=== PATIENT | female | born 1985 | race Caucasian/White ===

== ENCOUNTER 2017-11-10 07:59 | Emergency (ER) | payer OTHER ==
[~2017-11-10] VITALS: Ht 165.1 cm; Wt 52.6 kg
[2017-11-10] MEDS ORDERED: PLAQUENIL200 MG PO (08:21)
[2017-11-10] MEDS ORDERED: VITAMIN B-12500 MCG PO (08:21)
[2017-11-10] MEDS ORDERED: VITAMIN D2000 UNIT PO (08:21)
[2017-11-10] MEDS ORDERED: PROAIR HFA8.5 GM INH (08:22)
[2017-11-10] MEDS ORDERED: TRAMADOL 50 MG50 MG PO (08:22)
[2017-11-10] MEDS ORDERED: ZANAFLEX2 MG PO (08:23)
[2017-11-10] MEDS ORDERED: JUNEL FE 1-201 EACH PO (08:23)
[2017-11-10 09:05] LABS: INFLUENZA A ANTIGEN None Detected (None Detect); INFLUENZA B ANTIGEN None Detected (None Detect)
[2017-11-10] MEDS ORDERED: ZOFRAN ODT4 MG DISSOLVE (09:08)
[2017-11-10 09:25] VITALS: BP 118/82
== END 2017-11-10 09:26 | disposition home or self-care (01) ==
LOC: M.ERS 07:59
PROVIDERS: Family Medicine
DX: B34.9 Viral infection, unspecified (principal); F17.210 Nicotine dependence, cigarettes, uncomplicated; K21.9 Gastro-esophageal reflux disease without esophagitis; J45.909 Unspecified asthma, uncomplicated; Z90.710 Acquired absence of both cervix and uterus

== ENCOUNTER 2019-01-07 15:35 | Emergency (ER) | payer OTHER ==
[~2019-01-07] VITALS: Ht 165.1 cm; Wt 57.6 kg
[~2019-01-07 15:35] MED LIST: JUNEL FE 1-201 EACH PO; PLAQUENIL200 MG PO; PROAIR HFA8.5 GM INH; TRAMADOL 50 MG50 MG PO; VITAMIN B-12500 MCG PO; VITAMIN D2000 UNIT PO; ZANAFLEX2 MG PO; ZOFRAN ODT4 MG DISSOLVE
[2019-01-07] MEDS ORDERED: XANAX 0.25 MG0.25 MG PO (15:45)
[2019-01-07] MEDS ORDERED: CELEBREX 200 M200 M1 PO (15:46)
[2019-01-07] MEDS ORDERED: IMITREX 50 MG T50 MG PO (15:47)
[2019-01-07] MEDS ORDERED: BOTOX100 UNIT IM (15:47)
[2019-01-07] MEDS ORDERED: NORCO 5-325 TA1 EACH PO (17:11)
[2019-01-07] MEDS ORDERED: MOBIC7.5 MG PO (17:13)
[2019-01-07 17:28] VITALS: BP 125/72
== END 2019-01-07 17:29 | disposition home or self-care (01) ==
LOC: M.ERS 15:35
DX: S22.32XA Fracture of one rib, left side, initial encounter for closed fracture (principal); K21.9 Gastro-esophageal reflux disease without esophagitis; J45.909 Unspecified asthma, uncomplicated; M79.7 Fibromyalgia; Z90.710 Acquired absence of both cervix and uterus; F17.210 Nicotine dependence, cigarettes, uncomplicated; Z88.1 Allergy status to other antibiotic agents; Z88.5 Allergy status to narcotic agent; Z88.6 Allergy status to analgesic agent; X58.XXXA Exposure to other specified factors, initial encounter; Y93.89 Activity, other specified; Y92.89 Other specified places as the place of occurrence of the external cause; Y99.8 Other external cause status

== ENCOUNTER → 2019-04-06 | Outpatient (CLI) | payer OTHER ==
[~2019-04-06] MED LIST changes: +BOTOX100 UNIT IM; +CELEBREX 200 M200 M1 PO; +IMITREX 50 MG T50 MG PO; +MOBIC7.5 MG PO; +NORCO 5-325 TA1 EACH PO; +XANAX 0.25 MG0.25 MG PO
== END ==
LOC: M.ULTRA 09:55
DX: M79.662 Pain in left lower leg (principal); M79.89 Other specified soft tissue disorders

== ENCOUNTER 2019-12-12 18:03 | Emergency (ER) | payer OTHER ==
[~2019-12-12] VITALS: Ht 165.1 cm; Wt 57.6 kg
[2019-12-12] MEDS ORDERED: METHOTREXATE 22.5 M1 SUBQ (18:14)
[2019-12-12] MEDS ORDERED: NORCO 5-325 TA1 EAC1 PO (20:23)
[2019-12-12] MEDS ORDERED: KEFLEX500 M1 PO (20:23)
[2019-12-12] MEDS ORDERED: PREDNISONE 20 M20 M1 PO (20:23)
[2019-12-12 20:36] VITALS: BP 130/81
== END 2019-12-12 20:36 | disposition home or self-care (01) ==
LOC: M.ERS 18:03
DX: M25.462 Effusion, left knee (principal); M25.561 Pain in right knee; L53.9 Erythematous condition, unspecified; M41.9 Scoliosis, unspecified; F17.210 Nicotine dependence, cigarettes, uncomplicated; K21.9 Gastro-esophageal reflux disease without esophagitis; J45.909 Unspecified asthma, uncomplicated; M79.7 Fibromyalgia; Z88.1 Allergy status to other antibiotic agents; Z88.6 Allergy status to analgesic agent; Z88.5 Allergy status to narcotic agent; Z90.710 Acquired absence of both cervix and uterus; Z86.2 Personal history of diseases of the blood and blood-forming organs and certain disorders involving the immune mechanism